=== PATIENT | female | born 1945 | race Caucasian/White ===

== ENCOUNTER 2023-09-15 05:59 | Emergency (ER) | payer MEDICARE, OTHER, SELFPAY ==
[2023-09-15 06:05] VITALS: BP 126/84
[2023-09-15 06:53] VITALS: BMI 24.6
--- NOTE | 2023-09-15 07:13 | ED.GENMED ---
History of Present Illness
General
Chief Complaint: Abdominal Pain
Source: patient
Time Seen by Provider: 09/15/23 06:38
History of Present Illness
History of Present Illness:
78-year-old female presents to the emergency room complaining of abdominal pain. Pain located in the lower abdomen. Pain has been present for about a week. It is worse with movement. She feels generally weak and drained. No known fever. She
has a history of diverticulosis and diverticulitis 4 years ago. She thought perhaps her symptoms are related to constipation as she has not had a normal bowel movement in several days. She took a laxative and then had diarrhea. No associated
nausea or vomiting.
Past History
Past History
ED Past Medical History: GERD
ED Past Surgical History: Orthopedic (Right partial knee replacement, left foot surgery)
Social History
Tobacco: Non-smoker
Alcohol: None
Drug: None
Personal:
Living: with family
Phy Exam
Physical Exam
Physical Exam:
General: Awake, Alert, Oriented X3. No acute distress.
Vitals: unremarkable
Head: Atraumatic
Eyes: Pupils equal, EOMI
Throat: Airway intact, no exudates
Neck: Trachea midline
Lungs: Clear and equal b/l
Heart: Regular rate, no murmurs
Abd: Soft, tender to palpation lower abdomen, No pulsatile mass
Neuro: Nonfocal
Skin: Warm, dry, no rash
Extremities: pulses equal b/l, no edema
Course
Orders/Labs/Results
Orders:
Orders
09/15/23 06:11
IV Insert/Care/Rem.- Treatment PRN
09/15/23 06:49
Complete Blood Count/With Diff Urgent
Comprehensive Metabolic Panel Urgent
Lipase Urgent
09/15/23 07:06
0.9% Sodium Chloride 500 ml [Nss] 500 ml IV BOLUS
Ketorolac [Toradol] 15 mg IV NOW STA
09/15/23 07:07
CT Abd/Pel (IV only)-DH only Urgent
Comment:
Reason For Exam: lower abd pain
09/15/23 08:23
Urinalysis Reflex To Culture Urgent
Date Specimen was Collected: 09/15/23
Time Specimen was Collected: 06:11
Urine Microscopic Reflex Cult Urgent
09/15/23 09:23
Amoxicillin 875 mg/Clav 125 mg [Augmentin 875 mg/125 mg] 1 tablet PO NOW STA
Abnormal Lab Results
09/15/23 09/15/23
06:49 08:23
MCV 80.5 L fL
(81.0-99.0)
MCH 26.9 L pg
(27.0-31.0)
RDW 18.3 H %
(11.5-14.5)
Abs Immat Gran (auto) 0.1 H 10^3/uL
(0-0.05)
Absolute Monos (auto) 1.0 H 10^3/uL
(0.1-0.6)
Immature Gran % 0.6 H %
(0-0.5)
Lymphocytes % 18.0 L %
(20.5-51.1)
Monocytes % 11.9 H %
(1.7-9.3)
Glucose 108 H mg/dl
(70-99)
Total Bilirubin 2.5 H mg/dl
(0.2-1.3)
AST 64 H U/L
(14-36)
ALT 48 H U/L
(0-35)
Urine Ketones Trace A
(Negative)
Leukocyte Esterase Rfl Trace A
(Negative)
Urine Bacteria (Reflex) Few A
(Negative)
09/15/23 06:49
09/15/23 06:49
Vital Signs
Initial and Last Documented VS:
Initial Vital Signs
Temp Pulse Resp BP Pulse Ox
98.2 F 89 20 126/84 97
09/15/23 06:05 09/15/23 06:05 09/15/23 06:05 09/15/23 06:05 09/15/23 06:05
Last Documented Vital Signs
Temp Pulse Resp BP Pulse Ox
98.2 F 65 18 118/70 97
09/15/23 06:05 09/15/23 10:30 09/15/23 10:30 09/15/23 10:30 09/15/23 10:30
MDM/Problems Addressed
Differential Diagnosis Includes:
Diverticulitis, appendicitis, colitis, constipation
MDM/Problems Addressed:
Patient's physical exam was most concerning for diverticulitis. CT was obtained which confirms the diagnosis without any complicating factors. Will start the patient on Augmentin. Have her follow-up with her primary care doctor but also gave
contact information for colorectal surgery.
Chronic conditions affecting care: Other (Hypothyroidism)
*Radiology
Radiology exam reviewed: radiology read reviewed
*Pulse Oximetry
Patient hypoxic: no
*Critical Care Note
Total Time (30-74mins, 75-104mins- exclusive of procedures): Not Applicable
ED Attending Note
-
Portions of this chart may have been created with voice recognition software.� Occasional wrong word or��sound alike� substitutions may have occurred due to the inherent limitations of voice recognition software.
Discharge Plan
Departure
Patient Disposition: Home (Routine Discharge)
Date of Disposition: 09/15/23
Time of Disposition: 09:21
Patient with high blood pressure during this ER visit?: No
Condition: Good
Discharge Problem:
Diverticulitis
Instructions: Diverticulitis (DC)
Prescriptions:
New
amoxicillin-pot clavulanate 875-125 mg tablet
1 tab PO BID Qty: 14 0RF
Referrals:
Alessandro Oliver CRNP [Family Provider] -
Wai Mccartney MD [Active] -
Interventions
Interventions:
*Risk Screen - Suicide Last Done: 09/15/23 06:05
*General Assessment Last Done: 09/15/23 06:05
*Neglect/Abuse Screening Last Done: 09/15/23 06:05
ED- Fall Risk Assessment Last Done: 09/15/23 06:05
*ED COVID-19 Vaccine History Last Done: 09/15/23 10:30
*Nursing Disposition Last Done: 09/15/23 10:30
QP-Jbslel-Iowvhnusae Assessment Last Done: 09/15/23 06:53
Discharge Date and Time
Discharge Date/Time: 09/15/23 10:30
Print Language: BRAZILIAN
[2023-09-15 07:25] LABS: % Eosinophils 1.7 % (0-6); % Immature Granulocytes 0.6 % (0-0.5); % Monocytes 11.9 % (1.7-9.3); % Neutrophils 66.8 % (42.2-75.2); Absolute Basophils 0.1 10^3/uL (0-0.2); Absolute Eosinophils 0.1 10^3/uL (0-0.7); Absolute Immature Granulocytes 0.1 10^3/uL (0-0.05); Absolute Lymphocytes 1.5 10^3/uL (1.2-3.4); Absolute Neutrophils 5.6 10^3/uL (1.4-6.5); Hematocrit 40.4 % (37.0-47.0); Hemoglobin 13.5 g/dL (12.0-16.0); Mean Corp Hgb Conc. 33.4 g/dL (33.0-37.0); Mean Corpuscular Hgb 26.9 pg (27.0-31.0); Mean Corpuscular Volume 80.5 fL (81.0-99.0); Mean Platelet Volume 9.9 fL (7.4-10.4); Nucleated Red Blood Cells % 0 %; Platelet Count 334 10^3/uL (130-400); Red Blood Cell Count 5.02 10^6/uL (4.20-5.40); Red Cell Dist. Width 18.3 % (11.5-14.5); White Blood Cell Count 8.4 10^3/uL (4.8-10.8)
[2023-09-15 07:31] LABS: ALT (SGPT) 48 U/L (0-35); AST (SGOT) 64 U/L (14-36); Albumin 4.2 g/dl (3.5-5.0); Alkaline Phosphatase 116 U/L (38-126); Blood Urea Nitrogen 11 mg/dl (7-17); Calcium 9.3 mg/dl (8.4-10.2); Carbon Dioxide 22 mmol/L (22-30); Chloride 104 mmol/L (98-107); Estimated Creatinine Clearance 88 ml/min; Glucose 108 mg/dl (70-99); Lipase 120 U/L (23-300); Potassium 4.2 mmol/L (3.5-5.1); Sodium 136 mmol/L (135-145); Total Bilirubin 2.5 mg/dl (0.2-1.3); Total Protein 6.7 g/dl (6.3-8.2); eGFR > 60.00
[2023-09-15] MEDS: TORADOL 15 MG IV (07:39)
[2023-09-15] MEDS: NSS 500 IV (07:42)
[2023-09-15 08:26] VITALS: BP 125/72
[2023-09-15 08:33] LABS: Urine Albumin Negative (Neg - Trace); Urine Bilirubin Negative (Negative); Urine Character Clear (Clear); Urine Color Yellow; Urine Glucose Negative (Negative); Urine Ketone Trace (Negative); Urine Leukocyte Trace (Negative); Urine Nitrite Negative (Negative); Urine Occult Blood Negative (Negative); Urine Urobilinogen Negative (Neg - 1+); Urine pH 6.5 (5.0-9.0)
[2023-09-15 08:53] LABS: Urine Bacteria Few (Negative); Urine Red Blood Cell 0-2 /HPF (0-2)
[2023-09-15 09:00] VITALS: BP 118/70
[2023-09-15] MEDS: AUGMENTIN 875 MG/125 MG 1 TABLET PO (09:37)
[2023-09-15 10:30] VITALS: BP 118/70
== END 2023-09-15 10:30 | disposition home or self-care (01) ==
LOC: EMR 05:59
PROVIDERS: EMERGENCY PHYSICIAN Emergency Medicine; FAMILY PHYSICIAN Nurse Practitioner Family
DX: K57.32 Diverticulitis of large intestine without perforation or abscess without bleeding (principal); R53.1 Weakness; E03.9 Hypothyroidism, unspecified; K21.9 Gastro-esophageal reflux disease without esophagitis; Z96.651 Presence of right artificial knee joint; Z88.1 Allergy status to other antibiotic agents
CPT/HCPCS: 99285; 96361 ×2; 96374; 74177; 80053; 81003; 81015; 83690; 85025; Q9967

== ENCOUNTER → 2024-02-20 11:09 | Outpatient (REF) | payer MEDICARE, OTHER, SELFPAY | LOC: RAD 11:09 | PROVIDERS: ATTENDING PHYSICIAN Obstetrics & Gynecology; FAMILY PHYSICIAN Family Medicine | DX: N83.8 Other noninflammatory disorders of ovary, fallopian tube and broad ligament (principal) | CPT/HCPCS: 76856 ==